=== PATIENT | female | born 1960 | race African-American/Black ===

== ENCOUNTER 2025-08-26 11:52 | Emergency (ER) | payer OTHER ==
[~2025-08-26] VITALS: Ht 160 cm; Wt 98.3 kg
[2025-08-26 13:22] VITALS: TEMP 98.9
--- NOTE | 2025-08-26 13:44 | ED.PDOC ---
History of present illness HPI Comments This is a 65 year old female presenting to the ED with chief complaint of hyperglycemia. Patient reports that she has been without insulin for the past few days, being unable to get a refill from her usual pharmacy. Patient relays that she has had associated slurred speech for the past 2 days. Patient notes her BG was in the 200s today. Patient denies any N/V/D, abdominal pain, dizziness, frequent urination, or headache. Chief Complaint: Diabetes Time Seen by MD: 13:43 History of present illness: Nurses Notes, Medications, Allergies Allergies: Coded Allergies: NO KNOWN ALLERGIES (Unverified , 08/26/25) Information Source: Patient, Spouse Mode of Arrival: Ambulatory Timing: Days Duration: Since onset Prehospital treatment: None Knapp: Slurred speech Symptoms: Slurred speech History of: Diabetes, Insulin use Modifying factors: Nothing Past Medical History PAST MEDICAL HISTORY: DM Surgical History: Denies all surgeries PROGRAMS ASSISTANT History: Denies all PROGRAMS ASSISTANT Hx Family History Family History: Reviewed,noncontributory to illness Social History Smoker: Non-Smoker Alcohol: Denies ETOH Use Drugs: Denies Drug Use Lives In: Home Constitutional: denies: chills, diaphoresis, fatigue, fever, malaise, sweats, weakness, others EENTM: denies: blurred vision, double vision, ear bleeding, ear discharge, ear drainage, ear pain, ear ringing, eye pain, eye redness, hearing loss, mouth pain, mouth swelling, nasal discharge, nose bleeding, nose congestion, nose pain, photophobia, tearing, throat pain, throat swelling, voice changes, others Respiratory: denies: cough, hemoptysis, orthopnea, SOB at rest, shortness of breath, SOB with excertion, stridor, wheezing, others Cardiovascular: denies: chest pain, dizzy spells, diaphoresis, Dyspnea on exertion, edema, irregular heart beat, left arm pain, lightheadedness, palpitations, PND, syncope, others Gastrointestinal: denies: abdomen distended, abdominal pain, blood streaked bowels, constipated, diarrhea, dysphagia, difficulty swallowing, hematemesis, me satya, nausea, poor appetite, poor fluid intake, rectal bleeding, rectal pain, vomiting, others Genitourinary: denies: abnormal vagina bleeding, burning, dyspareunia, dysuria, flank pain, frequency, hematuria, incontinence, pain, , vagina discharge, urgency, others Neurological: reports: speech problems; denies: dizziness, fainting, headache, left sided numbness, left sided weakness, numbness, paresthesia, pre-existing deficit, right sided numbness, right sided weakness, seizure, tingling, tremors, weakness, others Musculoskeletal: denies: back pain, gout, joint pain, joint swelling, muscle pain, muscle stiffness, neck pain, others Integumetry: denies: bruises, change in color, change in hair/nails, dryness, laceration, lesions, lumps, rash, wounds, others Allergic/Immunocompromised: denies: Difficulty Healing, Frequent Infections, Hives, Itching, others Hematologic/Lymphatic: denies: anemia, blood clots, easy bleeding, easy bruising, swollen glands, others Endocrine: denies: excessive hunger, excessive sweating, excessive thirst, excessive urination, flushing, intolerance to cold, intolerance to heat, unexplained weight gain, unexplained weight loss, others Psychiatric: denies: anxiety, bipolar disorder, depression, hopeless, panic disorder, schizophrenia, sleepless, suicidal, others All Other Systems: Reviewed and Negative Physical Exam General Appearance: No Apparent Distress, Normal HEENT: Normal ENT Inspection, Pharynx Normal, TMs Normal Neck: Full Range of Motion, Non-Tender, Normal, Normal Inspection Respiratory: Chest Non-Tender, Lungs Clear, No Accessory Muscle Use, No Respiratory Distress, Normal Breath Sounds Cardiovascular: No Edema, No JVD, No Murmur, No Gallop, Normal Peripheral Pulses, Regular Rate/Rhythm Breast Exam: Deferred Gastrointestinal: No Organomegaly, Non Tender, No Pulsatile Mass, Normal Bowel Sounds, Soft Genitalia: Deferred Pelvic: Deferred Rectal: Deferred Extremities: No calf tenderness, Normal capillary refill, Normal inspection, Normal range of motion, Non-tender, No pedal edema Musculoskeletal : Apperance: Normal Neurologic: Alert, compliance review officer II-XII nml as Tested, No Motor Deficits, Normal Affect, Normal Mood, No Sensory Deficits, Other (Mild dysarthria) Cerebellar Function: Normal Reflexes: Normal Skin: Dry, Normal Color, Warm Lymphatic: No Adenopathy Was a procedure done? Was a procedure done?: No Differential Diagnosis (DM) Differential Diagnosis: Electrolyte Abnormality, Hyperglycemia X-Ray, Labs, Meds, VS Vital Signs Date Time Temp Pulse Resp B/P (MAP) Pulse Ox O2 Delivery O2 Flow Rate FiO2 08/26/25 15:07 99 18 145/73 (97) 96 08/26/25 13:22 98.9 103 18 127/93 (104) 96 98.9 08/26/25 11:54 98.6 106 15 135/96 100 98.6 Lab Test 08/26/25 15:02 08/26/25 13:58 08/26/25 12:00 Range/Units Troponin I High Sensitivity 30 24 </=34 ng/L White Blood Count 13.2 H 4.4-10.8 10^3/uL Red Blood Count 4.27 4.0-5.20 10^6/uL Hemoglobin 12.0 L 12.2-16.2 g/dL Hematocrit 37.2 36.0-46.0 % Mean Corpuscular Volume 87.2 80.0-100.0 fL Mean Corpuscular Hemoglobin 28.2 28.0-32.0 pg Mean Corpuscular Hemoglobin Concent 32.3 32.0-36.0 g/dL Red Cell Distribution Width 15.4 H 11.8-14.3 % Platelet Count 431 140-450 10^3/uL Mean Platelet Volume 7.2 6.9-10.8 fL Neutrophils (%) (Auto) 60.7 37.0-80.0 % Lymphocytes (%) (Auto) 31.4 10.0-50.0 % Monocytes (%) (Auto) 5.5 0.0-12.0 % Eosinophils (%) (Auto) 1.3 0.0-7.0 % Basophils (%) (Auto) 1.1 0.0-2.0 % Neutrophils # (Auto) 8.0 1.6-8.6 10 ^3/uL Lymphocytes # (Auto) 4.2 0.4-5.4 10 ^3/uL Monocytes # (Auto) 0.7 0-1.3 10 ^3/uL Eosinophils # (Auto) 0.2 0-0.8 10 ^3/uL Basophils # (Auto) 0.1 0-0.2 10 ^3/uL Nucleated Red Blood Cells 0.1 % Sodium Level 142 136-145 mmol/L Potassium Level 4.0 3.5-5.1 mmol/L Chloride Level 107 98-107 mmol/L Carbon Dioxide Level 24 20-31 mmol/L Anion Gap 11 5-15 Blood Urea Nitrogen 34 H 9-23 mg/dL Creatinine 1.67 H 0.550-1.02 mg/dL Glomerular Filtration Rate Calc 34 >90 mL/min BUN/Creatinine Ratio 20.4 H 10.0-20.0 Serum Glucose 258 H 74-106 mg/dL Lactic Acid Level 1.9 0.4-2.0 mmol/L Calcium Level 9.8 8.7-10.4 mg/dL B-Type Natriuretic Peptide 26.09 0-100 pg/mL POC Glucose 225 H 70-106 mg/dl Time of 1ST Reevaluation: 14:42 Reevaluation 1ST: Unchanged Patient Education/Counseling: Diagnosis, Treatment Family Education/Counseling: Diagnosis, Treatment SEPSIS Sepsis Screen Date sepsis recognized/suspect: Aug 26, 2025 Time Sepsis recognized/suspect: 1158 Recent Procedure: No On Antibiotic Therapy: No Respiratory Rate >20: No Heart Rate >90: Yes Temp<36 C (96.8 F) or >38.3 C: No SBP <90 or MAP <65 mmHG: No New Acute Mental Status Change: No Is the patient on CPAP, BIPAP,: No Physician Orders Urinalysis (08/26/25 13:25) Chest Portable (08/26/25 13:25) Blood Culture (08/26/25 13:25) Head Without Contrast (08/26/25 13:25) Electrocardigram (08/26/25 13:25) Troponin-I Hs (08/26/25 16:25) Electrocardigram (08/26/25 14:25) Electrocardigram (08/26/25 16:25) Vital Signs Date Time Temp Pulse Resp B/P (MAP) Pulse Ox O2 Delivery O2 Flow Rate FiO2 08/26/25 15:07 99 18 145/73 (97) 96 08/26/25 13:22 98.9 103 18 127/93 (104) 96 98.9 08/26/25 11:54 98.6 106 15 135/96 100 98.6 Laboratory Tests Test 08/26/25 13:58 Lactic Acid Level 1.9 mmol/L (0.4-2.0) White Blood Count 13.2 10^3/uL (4.4-10.8) H Departure 1 Departure Time of Disposition: 16:02 (Patient presents with signs and symptoms concerning for a CVA. Patient's symptoms began over 24 hours ago so the patient was out of the window for acute neurologic intervention. CT scan is concerning for a recent stroke. Lab work is otherwise fairly benign. We will admit patient for further workup and expert consultation) Impression: Primary Impression: Suspected cerebrovascular accident (CVA) Additional Impressions: Dysarthria Hyperglycemia Generalized weakness Disposition: ADMITTED INPATIENT Admit to: Tele Condition: Guarded Critical Care Note Critical Care Time?: Yes Critical care comment: Suspected CVA Authorized and Performed by: Fran Campbell MD Total critical care time: Approximately 115 minutes Due to a high probability of clinically significant, life threatening deterioration, the patient required my highest level of preparedness to intervene emergently and I personally spent this critical care time directly and personally managing the patient. This critical care time included obtaining a history; examining the patient; pulse oximetry; ordering and review of studies; arranging urgent treatment with development of a management plan; evaluation of patient's response to treatment; frequent reassessment; and, discussions with other providers. This critical care time was performed to assess and manage the high probability of imminent, life-threatening deterioration that could result in multi-organ failure. It was exclusive of separately billable procedures and treating other patients and teaching time. Please see my other sections and the rest of the note for further information on patient assessment and treatment. Stability Stability form required: No Heart Score Heart Score: Heart Score Response (Comments) Value History N/A 0 EKG N/A 0 Age N/A 0 Risk Factors N/A 0 Troponin N/A 0 Total 0 I personally scribed for FRAN CAMPBELL MD ([email or web address]) on 08/26/25 at 13:44. Electronically submitted by Yohannes Galindo ([email or web address]). FRAN CAMPBELL MD Aug 26, 2025 13:44
[2025-08-26 14:25] LABS: Hematocrit 37.2 % (36.0-46.0); Hemoglobin 12.0 g/dL (12.2-16.2); Mean Corpuscular Hemoglobin 28.2 pg (28.0-32.0); Mean Corpuscular Volume 87.2 fL (80.0-100.0); Nucleated Red Blood Cells % 0.1 %
[2025-08-26 14:30] LABS: Chloride 107 mmol/L (98-107); Potassium 4.0 mmol/L (3.5-5.1); Sodium 142 mmol/L (136-145)
[2025-08-26 14:31] LABS: Anion Gap 11 (5-15); Calcium 9.8 mg/dL (8.7-10.4); Carbon Dioxide 24 mmol/L (20-31)
[2025-08-26 14:36] LABS: BUN/Creatinine Ratio 20.4 (10.0-20.0)
[2025-08-26 14:40] LABS: Blood Urea Nitrogen 34 mg/dL (9-23); Glucose 258 mg/dL (74-106)
--- NOTE | 2025-08-26 14:48 | DVH ---
CLINICAL INFORMATION: Altered mental status. TECHNIQUE: Single AP portable chest radiograph was obtained. COMPARISON: None FINDINGS: Lungs: Clear. Cardiac: Heart size is within normal limits. Pulmonary vasculature: Unremarkable. Mediastinum/nitin: Moderate atherosclerotic calcification of the aortic arch. Bones: No acute osseous abnormality identified. Other: No other significant findings. IMPRESSION: No evidence of acute disease in the chest.
[2025-08-26 15:07] VITALS: BP 145/73; PULSE 99; RESP 18; O2SAT 96
--- NOTE | 2025-08-26 15:11 | DVH ---
EXAM: CT HEAD WITHOUT CONTRAST INDICATION: slurred speach TECHNIQUE: CT of the head without intravenous contrast. Coronal and sagittal reformatted images are submitted. Radiation Dose : 1. Head: CT Dose: CTDI volume is 60.9 mGy. Dose-length product is 1076.6 mGy*cm The dose indicators for CT are the volume Computed Tomography (CT) Dose Index (CTDIvol) and the Dose Length Product (DLP), and are measured in units of mGy and mGy-cm, respectively. These indicators are not patient dose, but values generated from the CT scanner acquisition factors. The report includes radiation exposure data for exposures received during this examination. All CT scans at this medical facility are performed using dose modulation techniques as appropriate to a performed exam including the following: Automated exposure control was utilized; adjustment of the MA and/or KV according to patient size; and use of iterative reconstruction technique. COMPARISON: None FINDINGS: There is no evidence of acute intracranial hemorrhage, extra-axial collection, mass effect, midline shift, herniation or hydrocephalus. There are periventricular and subcortical hypodensities, nonspecific, but likely reflecting sequelae of chronic microvascular ischemic changes. There are is a focal hypodensity in the left frontal lobe. The ventricles, sulci and cisterns are age appropriate. The mcpherson-white differentiation is intact. The visualized paranasal sinuses and mastoid air cells are clear. No depressed calvarial fracture. The surrounding soft tissues are unremarkable. IMPRESSION: 1. Hypodensity in the left frontal lobe. A recent cortical infarct is not excluded. MRI of the brain is recommended for further evaluation. 2. No acute intracranial hemorrhage.
== END 2025-08-26 17:03 | disposition left against medical advice (07) ==
LOC: ER 11:52
DX: E11.65 Type 2 diabetes mellitus with hyperglycemia (principal); R47.1 Dysarthria and anarthria; R53.1 Weakness
CPT/HCPCS: 36415; 70450; 71045; 80048; 82947; 82962; 83605; 83880; 84484; 85025; 87040; 99291; 99292